=== PATIENT | female | born 1950 | race Caucasian/White ===

== ENCOUNTER 2025-01-12 10:26 | Emergency (ER) | payer OTHER, SELFPAY ==
[2025-01-12] VITALS (8 sets, daily range): BP systolic 97–146; BP diastolic 64–98; PULSE 71; O2SAT 94; BMI 23.7
--- NOTE | 2025-01-12 10:46 | ED.GENMED ---
History of Present Illness
General
Chief Complaint: Musculo-Skeletal Complaint
Source: patient, records, spouse and family (Daughter)
Exam Limitations: dementia
Time Seen by Provider: 01/12/25 10:36
Nursing documentation reviewed up to this point in time: agreed with
History of Present Illness
History of Present Illness:
74-year-old female with a past medical history of hypertension hyperlipidemia, significant dementia who presents to the emergency room accompanied by her spouse as well as her daughter for evaluation of back/hip pain. Family provides most of
history as patient is very limited due to her history of dementia. According to her family she did in the past have issues with chronic pain in her back related to scoliosis and for which she followed with pain management; since she has been
dealing with dementia has not complained of back pain really at all they say. Over the past 2 days however family notes that she has seemed to be favoring the left leg/back� says that she seemed to be limping when he was helping her around
yesterday favoring the left leg and that this morning she seem to be complaining of pain in the left hip/back when sitting or up in bed. This is a new complaint for her and so they brought her to the ER to be evaluated. She does not seem to have
pain at rest they say, mainly with weightbearing. She has not had any falls or injuries reportedly. They do note that she has a history of osteoporosis and had issues with stress fractures with minimal trauma in the past.
Review of Systems
Review of Systems
Unable to obtain full review of systems at this time due to: dementia
All Other Systems: Not applicable
Phy Exam
Physical Exam
Physical Exam:
General: Awake, alert, smiling but minimally verbal
Head: Normocephalic, atraumatic
Eyes: Conjunctiva normal
Throat: Airway intact, handling secretions
Neck: Trachea midline, no apparent tenderness in the cervical spine
Back: Patient has severe scoliosis, no apparent focal tenderness in the thoracic or lumbar region or in the paraspinal musculature
Lungs: Breathing comfortably without distress
Heart: Regular rate
Abd: Soft, non distended, not apparently tender
Skin: No rash, no bruising or abrasions noted
Extremities: Patient has no edema in the legs, good distal pulses in both lower extremities; she has no signs of acute trauma to the legs; she does allow for passive range of motion in both hips, knees, ankles without any apparent discomfort
Scores
Heart Failure Risk
Heart Failure Risk Score: Not Applicable
Heart Score for Chest Pain Patients
STEMI patient?: Not applicable
Withdrawal Assessment of Alcohol
Withdrawal Assessment Completed?: Not applicable
Course
Orders/Labs/Results
Orders:
Orders
01/12/25 10:46
CT Abd/pel Without Iv Or Oral Urgent
Comment:
Reason For Exam: back and pelvic pain, h/o osteoporosis
CR Femur - Left Min 2 Vw Urgent
Comment:
Reason For Exam: left leg pain
01/12/25 13:42
Pt Eval And Treat Urgent
Activity Level: With Assistance
01/12/25 14:02
Street [Street Placement- Treatment] ONCE
Reason for insertion: Acute Retention
01/12/25 14:04
Urinalysis Reflex To Culture Urgent
Date Specimen was Collected: 01/12/25
Time Specimen was Collected: 14:01
Urine Microscopic Reflex Cult Urgent
01/12/25 14:20
Case Management Consult ONCE
Case Management Consult: VN/Home Care
Abnormal Lab Results
01/12/25
14:04
Ur Occult Blood Reflex 3+ A
(Negative)
Urine RBC 21-25 A /HPF
(0-2)
Urine Albumin (Reflex) 1+ A
(Neg - Trace)
Vital Signs
Initial and Last Documented VS:
Initial Vital Signs
Pulse Ox
96
01/12/25 10:37
Last Documented Vital Signs
Temp Pulse Resp BP Pulse Ox
36.6 C 67 96 97/82 91
01/12/25 10:40 01/12/25 15:30 01/12/25 10:40 01/12/25 15:05 01/12/25 15:30
MDM/Problems Addressed
Differential Diagnosis Includes:
Compression fracture, radiculopathy, pelvic fracture, femoral fracture
MDM/Problems Addressed:
74-year-old female presents for evaluation of apparent pain in the left low back/hip over the past 2 days the family notes mainly with weightbearing. No falls reported. Vitals and exam as above. Patient is unfortunately a very poor historian and
cannot localize pain and while resting in bed does not seem to have any focal tenderness or pain. Will plan to check CT of the abdomen/pelvis to rule out compression fracture as well as pelvic and hip fractures. Check x-ray of the femur as well.
Vascular exam normal, no edema to suggest DVT. Will monitor closely reassess after the above.
X-ray of the femur shows no acute abnormalities. CT shows osteopenia with chronic fractures T12 and T8 vertebral bodies status post vertebroplasty and moderate compression deformity of T9 age-indeterminate. Possible that compression fracture is
because of her discomfort recently. She has been resting comfortably here and does not appear to be in any pain. Will have physical therapy evaluate and reassess. Patient was incidentally noted to have some retained urine on bladder scan�catheter
placed and will send urinalysis to rule out pyelonephritis/UTI as cause of her pain.
Urinalysis shows no signs of acute infection. Awaiting PT evaluation. I had a long discussion with the patient's and daughter about plan�at this point it seems likely is that compression fracture versus radiculopathy is causing her
discomfort. No clear indication for hospitalization however I did offer to attempt placement in rehab if they feel that symptoms are limiting their ability to assist patient at home with ADLs. They feel comfortable taking patient home�I did
consult insurance case manager to see if we can arrange for home resources for the patient/family.
Urinalysis no infection. PT evaluated patient still having pain with standing. I had a long discussion with the patient's family and insurance case manager at bedside with us. Offered placement in rehab or admission versus discharge home and family feels
that patient would become confused/agitated in hospital/rehab and wishes to try to take her home. She did have some urinary retention here will leave catheter in place for now. Arranged for visiting nurse and PT at home and family are happy with
this plan. Advised to follow-up with primary care and urology as outpatient and to return to the ER with any issues. Shared decision making discharged with outpatient follow-up plan.
Chronic conditions affecting care:
Dementia
*Radiology
Radiology exam reviewed: radiology read reviewed
*Pulse Oximetry
Patient hypoxic: no (97%)
*Critical Care Note
Total Time (30-74mins, 75-104mins- exclusive of procedures): Not Applicable
Data Reviewed
Review of Other/Old Records Reveals: Records
Source: patient, records, spouse and family
Patient Management
Social determinants of health affecting care: Strong social support (Very strong social support with and daughter)
Discussion with other providers: Other (Discussed with insurance case manager and PT)
Escalation/DeEscalation of care consider admission/obs:
Offered admission/rehab�shared decision making discharged home with home resources
ED Attending Note
-
Portions of this chart may have been created with voice recognition software.� Occasional wrong word or��sound alike� substitutions may have occurred due to the inherent limitations of voice recognition software.
Discharge Plan
Departure
Patient Disposition: Home (Routine Discharge)
Date of Disposition: 01/12/25
Time of Disposition: 15:53
Patient with high blood pressure during this ER visit?: No
Discharge Problem:
Back pain, Compression fracture, Urinary retention
Instructions: Vertebral Compression Fracture ED, Urinary retention (DC)
Prescriptions:
No Action
latanoprost 1 DROP drops
1 drp BOTH EYES HS
pantoprazole 40 MG tablet,delayed release (DR/EC)
40 mg PO DAILY
diphenhydramine-acetaminophen [Tylenol PM Extra Strength] 1 EACH tablet
1 ea PO HS
memantine 10 MG tablet
10 mg PO BID
vit C,O-Ff-ippoi-lutein-zeaxan [PreserVision AREDS-2] 1 EACH capsule
1 ea PO DAILY
cholecalciferol (vitamin D3) 125 MCG tablet,disintegrating
5,000 unit PO DAILY
B6/Folic/B12/Coffee/Phosphatid [Neuriva Plus Brain Perform Cap] 1 EACH Capsule
1 ea PO DAILY
Co Q-10
1 tab PO DAILY
amlodipine 2.5 MG tablet
2.5 mg PO DAILY Qty: 30 0RF
atorvastatin 40 MG tablet
40 mg PO QPM Qty: 30 0RF
aspirin 81 MG tablet,delayed release (DR/EC)
81 mg PO DAILY Qty: 30 0RF
Referrals:
Alex Ardon Jr., MD [Active, Urology] - Call in 1-3 days for appt
Referral Note: Urology
Kolton Edwards MD [Family Provider, Internal Medicine] - Follow up in 1 week
Activity Restrictions/Additional Instructions:
Thank you for visiting the Emergency Department at [facility].
1. Please schedule a follow up appointment as directed. Call first thing tomorrow morning to make an appointment.
2. If indicated, please take your medications as instructed and indicated on discharge paperwork.
3. If any of your symptoms do not improve, or persist, or become more severe within 6-12 hours, please return to the emergency department for further care.
4. Please return to the emergency department if you develop a headache, neck pain/stiffness, fever greater than 100.4F, chest pain, shortness of breath, persistent nausea, vomiting, slurred speech, difficulty walking, numbness/tingling, weakness,
signs of infection or any other symptoms that are worrisome to you.
Please call [phone] if you have any questions.
Interventions
Interventions:
*Risk Screen - Suicide Last Done: 01/12/25 10:40
*General Assessment Last Done: 01/12/25 10:40
*Neglect/Abuse Screening Last Done: 01/12/25 10:40
*ED- Fall Risk Assessment Last Done: 01/12/25 10:40
*ED COVID-19 Vaccine History Last Done: 01/12/25 10:40
Discharge Date and Time
Print Language: UPPER SORBIAN
[2025-01-12 14:17] LABS: Urine Character Clear (Clear)
[2025-01-12 14:40] LABS: Urine Red Blood Cell 21-25 /HPF (0-2); Urine Squamous Cell 16-20 /LPF (Few); Urine Urothelial Cell 0-2 /LPF (FEW)
--- NOTE | 2025-01-12 16:07 | CM ---
Addendum entered by Allison Locke RN 01/12/25 16:16:
Vianney Marques VN liaison notified and will set up [facility] .
Original Note:
PT eval indicated SNF.
Met with pt (with Dementia) Gerber and dgt Syed . Reviewed PT evaluation . Both declined they explained because patient could not tolerate being away from home with strange people.
Offered VN . They were given choice . They picked [facility] for PT and SN only.
Pt not safely ambulate at this time and has dementia.
An Ambulance will be set up Information given to decision unit rn Shanique to set up transportation.
Alert awake confused who lives with and has care givers 3x weekly for 3 hours. may increase hours.
Pt is assisted in all ADLs. She has never had VN /SNF.
Uses [facility] [address] Kolton Edwards
and May DAVIS aware of plan .
PLAN Home with [facility]
--- NOTE | 2025-01-12 16:27 | VNURNOTE ---
Home Health Liaison spoke with patient's spouse Gerber to discuss [facility] nurse/therapy, visits, schedule and homebound status. He is agreeable and understands that visits at home will be 2-3 x per week to assess and teach medical and hein
management. He is aware that [facility] will contact them for start of care in 1-2 days after discharge from .
[facility] referral completed in [facility].
== END 2025-01-12 20:35 | disposition home or self-care (01) ==
LOC: EMR 10:26
PROVIDERS: EMERGENCY PHYSICIAN Emergency Medicine; FAMILY PHYSICIAN Internal Medicine
DX: M48.54XA Collapsed vertebra, not elsewhere classified, thoracic region, initial encounter for fracture (principal); R33.9 Retention of urine, unspecified; M54.9 Dorsalgia, unspecified; M25.552 Pain in left hip; E78.5 Hyperlipidemia, unspecified; F03.90 Unspecified dementia, unspecified severity, without behavioral disturbance, psychotic disturbance, mood disturbance, and anxiety; G89.29 Other chronic pain; I10 Essential (primary) hypertension
CPT/HCPCS: 51702; 99284; 73552; 74176; 81003; 81015

== ENCOUNTER 2025-01-21 09:56 | Emergency (ER) | payer OTHER, SELFPAY ==
[2025-01-21 10:02] VITALS: BP 131/80
--- NOTE | 2025-01-21 10:12 | ED.GENMED ---
History of Present Illness
General
Chief Complaint: Urinary Symptoms
Time Seen by Provider: 01/21/25 10:01
History of Present Illness
History of Present Illness:
74-year-old female presents to the emergency department from home for evaluation of blood tinged urine in her Street catheter. She has dementia and can provide no history as she is nonverbal at this time. She was seen in this emergency department
just over 1 week ago for back pain at which time she was found to have urinary retention and a Street catheter was placed. Family also notes that her urine bag was dry overnight but when she stood up to come to the hospital drainage was suddenly
noted. No fevers reported at home. She is scheduled to see urology in 8 days for follow-up
Review of Systems
Review of Systems
Allergies reviewed?: Yes
All Other Systems: ROS reviewed and negative except as documented in HPI and ROS
Phy Exam
Physical Exam
Physical Exam:
GEN: Well appearing, NAD, WDWN
HEENT: Oral mucosa moist, no scleral icterus
Cardiac: Regular rate
Lung: No respiratory distress, no tachypnea
MSK: No gross deformity or injuries
Skin: Good color, no pallor or jaundice, no rashes
Neuro: Alert, not interactive, nonverbal, does not follow commands
Psych: Calm, cooperative
Course
Orders/Labs/Results
Orders:
Orders
01/21/25 10:10
CT Abd/pel Without Iv Or Oral Urgent
Comment:
Reason For Exam: hematuria
01/21/25 10:17
Urinalysis Reflex To Culture Urgent
Date Specimen was Collected: 01/21/25
Time Specimen was Collected: 10:15
Urine Microscopic Reflex Cult Urgent
Urine Culture Urgent
BARRERA Source: U
Specimen Description:
Date Specimen was Collected: 01/21/25
Time Specimen was Collected: 10:15
01/21/25 12:20
Cephalexin [Keflex 250 mg/5 ml] 500 mg PO NOW STA
Abnormal Lab Results
01/21/25
10:17
Ur Occult Blood Reflex 4+ A
(Negative)
Urine Nitrite (Reflex) Positive A
(Negative)
Leukocyte Esterase Rfl 3+ A
(Negative)
Urine RBC 7-10 A /HPF
(0-2)
Urine WBC (Reflex) 40-50 A /HPF
(0-5)
Urine Bacteria (Reflex) Many A
(Negative)
Urine Albumin (Reflex) 2+ A
(Neg - Trace)
Vital Signs
Initial and Last Documented VS:
Initial Vital Signs
Temp Pulse Resp BP Pulse Ox
98 F 72 16 131/80 97
01/21/25 10:02 01/21/25 10:02 01/21/25 10:02 01/21/25 10:02 01/21/25 10:02
Last Documented Vital Signs
Temp Pulse Resp BP Pulse Ox
98 F 72 16 131/80 97
01/21/25 10:02 01/21/25 10:02 01/21/25 10:02 01/21/25 10:02 01/21/25 10:12
MDM/Problems Addressed
MDM/Problems Addressed:
CT scan from last week reviewed showing bilateral nephrolithiasis, as a result given the report of blood-tinged urine repeat scan was obtained to evaluate for obstructive uropathy and this was reassuring. Urinalysis is consistent with acute UTI,
will start oral antibiotics, catheter will be exchanged and she will keep outpatient urology follow-up for catheter removal if appropriate
*Pulse Oximetry
SaO2: 97
Oxygen Mode of Delivery: Room air
Patient hypoxic: no
*Critical Care Note
Total Time (30-74mins, 75-104mins- exclusive of procedures): Not Applicable
ED Attending Note
-
Portions of this chart may have been created with voice recognition software.� Occasional wrong word or��sound alike� substitutions may have occurred due to the inherent limitations of voice recognition software.
Discharge Plan
Departure
Patient Disposition: Home (Routine Discharge)
Date of Disposition: 01/21/25
Time of Disposition: 11:24
Patient with high blood pressure during this ER visit?: No
Discharge Problem:
Catheter-associated urinary tract infection
Instructions: Urinary Tract Infection, Adult (DC)
Prescriptions:
New
cephalexin 250 mg/5 mL suspension for reconstitution
500 mg PO TID 7 Days Qty: 210 0RF
No Action
latanoprost 1 DROP drops
1 drp BOTH EYES HS
pantoprazole 40 MG tablet,delayed release (DR/EC)
40 mg PO DAILY
diphenhydramine-acetaminophen [Tylenol PM Extra Strength] 1 EACH tablet
1 ea PO HS
memantine 10 MG tablet
10 mg PO BID
vit C,N-Hl-pwbbo-lutein-zeaxan [PreserVision AREDS-2] 1 EACH capsule
1 ea PO DAILY
cholecalciferol (vitamin D3) 125 MCG tablet,disintegrating
5,000 unit PO DAILY
B6/Folic/B12/Coffee/Phosphatid [Neuriva Plus Brain Perform Cap] 1 EACH Capsule
1 ea PO DAILY
Co Q-10
1 tab PO DAILY
amlodipine 2.5 MG tablet
2.5 mg PO DAILY Qty: 30 0RF
atorvastatin 40 MG tablet
40 mg PO QPM Qty: 30 0RF
aspirin 81 MG tablet,delayed release (DR/EC)
81 mg PO DAILY Qty: 30 0RF
Referrals:
UNKNOWN - PT DOES,NOT KNOW [Unknown Provider]
Activity Restrictions/Additional Instructions:
Follow up with urology as planned for catheter removal
Interventions
Interventions:
*Risk Screen - Suicide Last Done: 01/21/25 10:35
*General Assessment Last Done: 01/21/25 10:31
*Neglect/Abuse Screening Last Done: 01/21/25 10:31
*ED- Fall Risk Assessment Last Done: 01/21/25 10:31
*ED COVID-19 Vaccine History Last Done: 01/21/25 10:31
ED-Female Genitourinary Assessment Last Done: 01/21/25 10:06
Discharge Date and Time
Print Language: SAMI
[2025-01-21 10:29] LABS: Urine Character Slightly Cloudy (Clear)
[2025-01-21 11:04] LABS: Urine White Cell 40-50 /HPF (0-5)
[2025-01-21 12:00] VITALS: BP 118/72
[2025-01-21] MEDS: KEFLEX 250 MG/5 ML 500 MG PO (13:00)
== END 2025-01-21 15:38 | disposition home or self-care (01) ==
LOC: EMR 09:56
PROVIDERS: Physician Assistant; EMERGENCY PHYSICIAN Emergency Medicine; FAMILY PHYSICIAN Internal Medicine
DX: T83.518A Infection and inflammatory reaction due to other urinary catheter, initial encounter (principal); N39.0 Urinary tract infection, site not specified; Y84.6 Urinary catheterization as the cause of abnormal reaction of the patient, or of later complication, without mention of misadventure at the time of the procedure; F03.90 Unspecified dementia, unspecified severity, without behavioral disturbance, psychotic disturbance, mood disturbance, and anxiety; N20.0 Calculus of kidney
CPT/HCPCS: 99284; 74176; 81003; 81015; 87077; 87086; 87186